=== PATIENT | female | born 2000 | race Hispanic/Latino ===

== ENCOUNTER 2022-08-17 21:58 | Emergency (ER) | payer OTHER ==
[2022-08-17] MEDS ORDERED: Acetaminophen 500 MG TAB ONE (23:48)
[2022-08-17] MEDS ORDERED: Ketorolac Tromethamine 30 MG/ML VIAL ONE (23:49)
== END 2022-08-17 23:58 | disposition home or self-care (01) ==
LOC: CSHERS 21:58
DX: S39.012A Strain of muscle, fascia and tendon of lower back, initial encounter (principal); X50.1XXA Overexertion from prolonged static or awkward postures, initial encounter
CPT/HCPCS: 96372; 99283; J1885